=== PATIENT | male | born 1995 | race Hispanic/Latino ===

== ENCOUNTER 2022-11-30 14:02 | Emergency (ER) | payer OTHER ==
[~2022-11-30] VITALS: Ht 185.4 cm; Wt 81.6 kg
[2022-11-30] VITALS (12 sets, daily range): BP systolic 119–137; BP diastolic 72–98
[2022-11-30 15:17] LABS: BASO% 0.4 % (0-3); EOS% 2.6 % (0-8); HEMATOCRIT 45.9 % (39.0-50.0); HEMOGLOBIN 15.9 g/dl (14.0-18.0); IMMATURE GRANULOCYTES 0.1 % (0.0-5.0); LYMPH% 38.4 % (15-41); MEAN CELL VOLUME 86.3 fL CALC (80.0-100.0); MEAN CORPUSCULAR HGB 29.9 pG CALC (26.0-32.0); MEAN CORPUSCULAR HGB CONC 34.6 g/dL CAL (32.0-36.0); MONO% 5.5 % (2-13); NEUT# 4.14 thou/uL (1.82-7.42); RED BLOOD COUNT 5.32 mill/uL (4.70-6.10); RED CELL DISTRI WIDTH 11.8 % (11.5-15.5)
[2022-11-30 15:31] LABS: ALBUMIN 5.1 g/dL (3.2-5.0); ALKALINE PHOSPHATASE 121 u/l (38-126); ANION GAP 10 (6-22 (CALC)); BILIRUBIN, TOTAL 0.4 mg/dL (0.2-1.3); BUN 12 mg/dL (9-20); BUN/CREATININE RATIO 17 (12-20 (CALC)); CARBON DIOXIDE 30 mmol/l (22-30); CHLORIDE 104 mmol/l (95-108); CREATININE 0.7 mg/dL (0.7-1.3); GFR FOR AFR.AMER. > 60 ML/MIN (>=60 (CALC)); GFR OTHER RACES > 60 ML/MIN (>=60 (CALC)); LIPASE 61 u/l (23-300); POTASSIUM 3.8 mmol/l (3.5-5.1); SGOT/AST 33 u/l (17-59); SODIUM 140 mmol/l (137-146); TOTAL PROTEIN 8.3 g/dL (6.3-8.2)
[2022-11-30 15:40] LABS: URINE BILIRUBIN - DIPSTICK NEGATIVE (NEGATIVE); URINE BLOOD DIPSTICK NEGATIVE (NEGATIVE); URINE COLOR YELLOW; URINE GLUCOSE - DIPSTICK NEGATIVE (NEGATIVE); URINE KETONE NEGATIVE (NEGATIVE); URINE LEUK ESTERASE NEGATIVE (NEGATIVE); URINE PROTEIN - DIPSTICK NEGATIVE (NEG-TRACE); URINE SPECIFIC GRAVITY 1.015; URINE UROBILINOGEN - DIPSTICK 0.2 E.U./dL (0.2)
[2022-11-30 15:42] LABS: URINE NITRITE - DIPSTICK NEGATIVE (Negative)
[2022-11-30] MEDS ORDERED: BENTYL10 M1 PO (17:45)
[2022-11-30] MEDS ORDERED: ONDANSETRON4 MG PO (17:45)
== END 2022-11-30 18:12 | disposition home or self-care (01) | DRG 392 ==
LOC: ED 14:02
PROVIDERS: Emergency Medicine
DX: R10.13 Epigastric pain (principal)
CPT/HCPCS: Q9967

== ENCOUNTER 2023-12-31 07:19 | Emergency (ER) | payer SELFPAY ==
[2023-12-31] VITALS (10 sets, daily range): BP systolic 113–132; BP diastolic 74–88
[~2023-12-31] VITALS: Ht 185.4 cm; Wt 63.5 kg
[~2023-12-31 07:19] MED LIST: BENTYL10 M1 PO; ONDANSETRON4 MG PO
[2023-12-31] MEDS ORDERED: ASPIRIN 81 MG/TAB PO ONE (07:35)
[2023-12-31] MEDS ORDERED: KETOROLAC TROMETHAMINE 30 MG/ML SDV IV ONE (08:05)
[2023-12-31 08:17] LABS: BASO% 0.3 % (0-3); EOS% 2.6 % (0-8); HEMATOCRIT 46.7 % (39.0-50.0); HEMOGLOBIN 15.6 g/dl (14.0-18.0); IMMATURE GRANULOCYTES 0.1 % (0.0-5.0); LYMPH% 37.5 % (15-41); MEAN CELL VOLUME 86.5 fL CALC (80.0-100.0); MEAN CORPUSCULAR HGB 28.9 pG CALC (26.0-32.0); MEAN CORPUSCULAR HGB CONC 33.4 g/dL CAL (32.0-36.0); MONO% 4.7 % (2-13); NEUT# 4.06 thou/uL (1.82-7.42); NEUT% 54.8 % (42-76); RED BLOOD COUNT 5.4 mill/uL (4.70-6.10); RED CELL DISTRI WIDTH 11.9 % (11.5-15.5)
[2023-12-31 08:55] LABS: ALBUMIN 4.5 g/dL (3.2-5.0); ALKALINE PHOSPHATASE 98 u/l (38-126); BUN 14 mg/dL (9-20); BUN/CREATININE RATIO 15 (12-20 (CALC)); CARBON DIOXIDE 28 mmol/l (22-30); CHLORIDE 105 mmol/l (95-108); CREATININE 0.9 mg/dL (0.7-1.3); GFR FOR AFR.AMER. > 60 ML/MIN (>=60 (CALC)); GFR OTHER RACES > 60 ML/MIN (>=60 (CALC)); SGOT/AST 36 u/l (17-59); SODIUM 141 mmol/l (137-146); TOTAL PROTEIN 7.8 g/dL (6.3-8.2)
[2023-12-31 09:03] LABS: ANION GAP 13 (6-22 (CALC)); BILIRUBIN, TOTAL 0.6 mg/dL (0.2-1.3); POTASSIUM 4.7 mmol/l (3.5-5.1)
[2023-12-31] MEDS ORDERED: NAPROXEN500 MG PO (09:19)
== END 2023-12-31 10:11 | disposition home or self-care (01) | DRG 313 ==
LOC: ED 07:19
PROVIDERS: Family Medicine
DX: R07.9 Chest pain, unspecified (principal)

== ENCOUNTER 2024-01-01 20:46 | Observation (INO) | payer SELFPAY ==
[~2024-01-01] VITALS: Ht 182.9 cm; Wt 66.4 kg
[2024-01-01] VITALS (11 sets, daily range): BP systolic 107–130; BP diastolic 75–90
[~2024-01-01 20:46] MED LIST changes: +NAPROXEN500 MG PO
[2024-01-01] MEDS ORDERED: ASPIRIN 81 MG/TAB PO ONE (21:00)
[2024-01-01] MEDS ORDERED: ALUM & MAG HYDROX-SIMETHICONE 30 ML PO ONE (21:00)
[2024-01-01] MEDS ORDERED: KETOROLAC TROMETHAMINE 30 MG/ML SDV IV ONE (21:05)
[2024-01-01 21:26] LABS: BASO% 0.4 % (0-3); EOS% 2.3 % (0-8); HEMATOCRIT 42.5 % (39.0-50.0); HEMOGLOBIN 14.5 g/dl (14.0-18.0); IMMATURE GRANULOCYTES 0.1 % (0.0-5.0); LYMPH% 52.7 % (15-41); MEAN CELL VOLUME 85.2 fL CALC (80.0-100.0); MEAN CORPUSCULAR HGB 29.1 pG CALC (26.0-32.0); MEAN CORPUSCULAR HGB CONC 34.1 g/dL CAL (32.0-36.0); MONO% 6.2 % (2-13); NEUT# 3.53 thou/uL (1.82-7.42); NEUT% 38.3 % (42-76); RED BLOOD COUNT 4.99 mill/uL (4.70-6.10); RED CELL DISTRI WIDTH 11.9 % (11.5-15.5)
[2024-01-01 21:42] LABS: CPK 63 u/l (55-170); LIPASE 78 u/l (23-300)
[2024-01-01 21:45] LABS: PROTHROMBIN TIME 9.9 SECONDS (9.0-12.5)
[2024-01-01 21:46] LABS: D-DIMER 0.17 mg/L (0.19-0.60)
[2024-01-01 21:47] LABS: URINE BILIRUBIN - DIPSTICK Negative (NEGATIVE); URINE BLOOD DIPSTICK Negative (NEGATIVE); URINE GLUCOSE - DIPSTICK Negative (NEGATIVE); URINE KETONE Negative (NEGATIVE); URINE LEUK ESTERASE Negative (NEGATIVE); URINE NITRITE - DIPSTICK Negative (Negative); URINE PH 7.5 (4.5-8.0); URINE PROTEIN - DIPSTICK Negative (NEG-TRACE); URINE SPECIFIC GRAVITY 1.015; URINE UROBILINOGEN - DIPSTICK 0.2 E.U./dL (0.2)
[2024-01-01 21:50] LABS: URINE COLOR Yellow
[2024-01-01 22:14] LABS: TSH, 3RD GENERATION 2.93 uIU/mL (0.47 - 4.68)
[2024-01-02] VITALS (31 sets, daily range): BP systolic 101–132; BP diastolic 56–92
[2024-01-02] MEDS ORDERED: ALUM & MAG HYDROX-SIMETHICONE 30 ML PO PRN (01:45)
[2024-01-02] MEDS ORDERED: ONDANSETRON HCl 4 MG/2 ML SDV IV PRN ×2 (01:45→15:50)
[2024-01-02] MEDS ORDERED: FAMOTIDINE 10MG/ML 2ML SDV IV PRN (01:45)
[2024-01-02] MEDS ORDERED: ONDANSETRON 4 MG/TAB ODT PO PRN (01:45)
[2024-01-02] MEDS ORDERED: MAGNESIUM HYDROXIDE 30 ML UDC PO PRN (01:45)
[2024-01-02] MEDS ORDERED: IBUPROFEN 800 MG/TAB PO PRN (01:45)
[2024-01-02] MEDS ORDERED: ALUM & MAG HYDROX-SIMETHICONE 30 ML PO SCH (11:00)
[2024-01-02] MEDS ORDERED: LIDOCAINE VISCOUS 2% 15 ML UDC PO SCH (11:00)
[2024-01-02] MEDS ORDERED: DIATRIZOATE MEGLUMINE & SODIUM 30 ML/BTL BTL PO SCH (12:00)
[2024-01-02] MEDS ORDERED: ACETAMINOPHEN 325 MG/TAB PO PRN (15:50)
[2024-01-02] MEDS ORDERED: LOPERAMIDE HCL 2 MG CAP PO PRN (15:50)
[2024-01-02] MEDS ORDERED: SODIUM CHLORIDE 0.9% 1,000 ML IV PRN (15:50)
[2024-01-02] MEDS ORDERED: PANTOPRAZOLE SO40 M1 PO (16:07)
[2024-01-02] MEDS ORDERED: PANTOPRAZOLE SODIUM Sesquihydr 40 MG/TAB PO SCH (21:00)
== END 2024-01-02 16:39 | disposition home or self-care (01) | DRG 313 ==
LOC: ED 20:46 → ED-I 23:45 → ED 01-02 01:42 → MS2 01-02 01:43
PROVIDERS: Internal Medicine; ADMIT Student in an Organized Health Care Education/Training Program; ATTEND Student in an Organized Health Care Education/Training Program
DX: R07.9 Chest pain, unspecified (principal); R10.11 Right upper quadrant pain
CPT/HCPCS: G0378; Q9967